=== PATIENT | male | born 1960 | race Two or more races ===

== ENCOUNTER 2017-05-22 09:58 | Emergency (ER) | payer SELFPAY ==
[~2017-05-22] VITALS: Ht 175.3 cm; Wt 127.0 kg
[2017-05-22 10:42] LABS: Basophils # (auto) 0 uL; Basophils % (auto) 0.5 % (0.0-2.0); CONDITION Y; Eosinophils # (auto) 0.1 uL; Eosinophils % (auto) 1.6 % (0.0-7.0); Hematocrit 48.8 % (41.0-53.0); Hemoglobin 16.5 g/dL (13.5-17.5); Lymphocytes # (auto) 1.1 uL; Lymphocytes % (auto) 14.2 % (10.0-50.0); Mean Corpuscular Hemoglobin 29.3 pg (28.0-32.0); Mean Corpuscular Hgb Conc. 33.8 g/dL (32.0-36.0); Mean Corpuscular Volume 86.9 fL (80.0-100.0); Mean Platelet Volume 8.7 fL (7.4-10.4); Monocytes # (auto) 0.9 uL; Monocytes % (auto) 10.6 % (0.0-12.0); Neutrophils # (auto) 5.9 uL; Neutrophils % (auto) 73.1 % (37.0-80.0); Platelet Count (auto) 268 10^3/uL (140-450); Red Cell Distribution Width 12.9 % (11.6-16.0); White Blood Cell 8.1 10^3/uL (4.4-10.8)
[2017-05-22] MEDS ORDERED: CLINDAMYCIN 900MG IV 50 ML IV ONE (10:45)
[2017-05-22] MEDS ORDERED: cefTRIAXone 1GM/50ML D5W 50 ML IV ONE (10:45)
[2017-05-22 10:58] LABS: Albumin 3.8 g/dL (3.4-5.0); BUN/Creatinine Ratio 14.1; Bilirubin, Total 0.6 mg/dL (0.2-1.0); Calcium 8.8 mg/dL (8.5-10.1); Potassium 3.7 mmol/L (3.5-5.1); Total Protein 8.3 g/dL (6.4-8.2)
== END 2017-05-22 13:27 | disposition home or self-care (01) ==
LOC: ER 09:58
DX: L03.115 Cellulitis of right lower limb (principal); I10 Essential (primary) hypertension
CPT/HCPCS: 36415; 71010; 73590; 73610; 80053; 82962; 83605; 85025; 87040; 93971; 94761; 96365; 96367; 99285; J0696; J3490; 93005